=== PATIENT | male | born 1985 | race Caucasian/White ===

== ENCOUNTER 2019-11-11 13:44 | Inpatient (IN) | payer OTHER ==
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
[2019-11-11] MEDS ORDERED: MAGNESIUM HYDROX 2400MG/30ML ORAL SUSPENSION 30 ML CUP PO PRN (15:48)
[2019-11-11] MEDS ORDERED: MAGNESIUM CITRATE 300 ML BOTTLE PO PRN (15:48)
[2019-11-11] MEDS ORDERED: MENTHOL/PHENOL 1 EACH UD MM PRN (15:48)
[2019-11-11] MEDS ORDERED: IBUPROFEN 400 MG TABLET (FP) PO PRN (15:48)
[2019-11-11] MEDS ORDERED: ACETAMINOPHEN 325 MG TABLET (FP) PO PRN ×2 (15:48)
[2019-11-11] MEDS ORDERED: BISMUTH SUBSALICYLATE 524 MG/30 ML UD PO PRN (15:48)
[2019-11-11] MEDS ORDERED: NICOTINE POLACRILEX 2 MG GUM BUC PRN (15:48)
[2019-11-11] MEDS ORDERED: MAG HYDROX/AL HYDROX/SIMETH 30 ML UNIT-DOSE CUP PO PRN (15:48)
[2019-11-11] MEDS ORDERED: chlordiazePOXIDE HCL 25 MG CAPSULE PO PRN (15:49)
[2019-11-11 16:07] VITALS: BMI 21.1
[2019-11-11] MEDS ORDERED: ONDANSETRON *ODT* 4 MG TABLET SL ONE (16:30)
[2019-11-11] MEDS ORDERED: TUBERCULIN PPD 5 TU/0.1ML VIAL ID ONE ×2 (16:42→16:49)
[2019-11-11] MEDS: NICOTINE 7 MG/24 HOURS TOPICAL PATCH TD SCH (16:47)
[2019-11-11] MEDS: PRENATAL VITAMINS W/ FOLIC ACID TABLET (FP) PO SCH (16:47)
[2019-11-11] MEDS: chlordiazePOXIDE HCL 25 MG CAPSULE PO SCH ×2 (17:05→22:00)
[2019-11-11] MEDS: hydrOXYzine PAMOATE 25 MG CAPSULE (FP) PO SCH ×2 (17:05→21:51)
[2019-11-11] MEDS ORDERED: cloNIDine HCL 0.1 MG TABLET PO ONE (21:08)
--- NOTE | 2019-11-11 21:17 | PN ---
S Progress Note Note: Patient's blood pressure is B/P 179/111. Patient is asymptomatic Vital Signs Temperature 98.7 F 11/11/19 21:02 Pulse Rate 112 H 11/11/19 21:02 Respiratory Rate 18 11/11/19 21:02 Blood Pressure 179/111 H 11/11/19 21:02 O2 Sat by Pulse Oximetry (%) 95 11/11/19 20:55 Action: Clonidine HCL 0.1mg tablet oral ordered
[2019-11-11] MEDS: MELATONIN 5 MG TABLETS PO SCH (21:51)
[2019-11-11] MEDS: THIAMINE HCL 100 MG TABLET (FP) PO SCH (21:51)
[2019-11-12] MEDS: hydrOXYzine PAMOATE 25 MG CAPSULE (FP) PO SCH ×5 (06:08→22:08)
[2019-11-12] MEDS: chlordiazePOXIDE HCL 25 MG CAPSULE PO SCH ×4 (06:09→22:08)
[2019-11-12] MEDS ORDERED: cloNIDine HCL 0.1 MG TABLET PO ONE (07:02)
--- NOTE | 2019-11-12 07:05 | PN ---
S Progress Note Note: Patient's blood pressure is B/P 163/97. Patient is asymptomatic Vital Signs Temperature 100.0 F H 11/12/19 05:57 Pulse Rate 92 H 11/12/19 05:57 Respiratory Rate 18 11/12/19 05:57 Blood Pressure 163/97 11/12/19 05:57 O2 Sat by Pulse Oximetry (%) 97 11/12/19 05:57 Action: Clonidine HCL 0.1mg tablet oral ordered
--- NOTE | 2019-11-12 08:21 | PN ---
Teaching Attending Note Name of Resident: César Cortez ATTENDING PHYSICIAN STATEMENT I saw and evaluated the patient. I reviewed the resident's note and discussed the case with the resident. I agree with the resident's findings and plan as documented. SUBJECTIVE: OBJECTIVE: ASSESSMENT AND PLAN:
[2019-11-12] MEDS: PRENATAL VITAMINS W/ FOLIC ACID TABLET (FP) PO SCH (10:08)
[2019-11-12] MEDS: NICOTINE 7 MG/24 HOURS TOPICAL PATCH TD SCH (10:09)
--- NOTE | 2019-11-12 10:57 | PN ---
[facility] CIWA - CIWA Score Nausea/Vomitin-Mild Nausea/No Vomiting Muscle Tremors: 4-Moderate,w/Arms Extend Anxiety: 5 Agitation: 4-Moderately Restless Paroxysmal Sweats: 2 Orientation: 0-Oriented Tacttile Disturbances: 0-None Auditory Disturbances: 0-None Visual Disturbances: 0-None Headache: 0-None Present CIWA-Ar Total Score: 16 BHS COWS - Scale Resting Pulse: 1= [place] 81-100 Sweatin= Chills/Flushing Restless Observation: 3= Extraneous Movement Pupil Size: 0= Normal to Room Light Bone or Joint Aches: 2= Severe Diffuse Aches Runny Nose/ Eye Tearin= None GI Upset > 30mins: 2= Nausea/Diarrhea Tremor Observation of Outstretched Hands: 2= Slight Tremor Visible Yawning Observation: 0= None Anxiety or Irritability: 2=Irritable/Anxious Goose Flesh Skin: 0=Smooth Skin COWS Score: 13 BHS Progress Note (SOAP) Subjective: Pt c/o Tremors cold sweats diarrhea restlessness decreased appetite intermittent sleep Objective: 11/12/19 10:55 Vital Signs - 24 hr 11/11/19 11/11/19 11/11/19 16:04 20:55 21:02 Temperature 98.5 F 98.7 F Pulse Rate 136 H 112 H Respiratory 20 18 Rate Blood Pressure 163/90 179/111 H O2 Sat by Pulse 95 Oximetry (%) 11/12/19 05:57 Temperature 100.0 F H Pulse Rate 92 H Respiratory 18 Rate Blood Pressure 163/97 O2 Sat by Pulse 97 Oximetry (%) lab results pending Alert o x 3 nad but slightly restless and requesting mor librium Assessment: 11/12/19 10:56 moderate withdrawal sx Plan: cont detox increase po fluids maintain saftey Extra dose -Librium 50 mg po x 1 @ 1300 today.
[2019-11-12 11:52] LABS: HEMATOCRIT 42.4 % (35.4-49); HEMOGLOBIN 14.5 GM/dL (11.7-16.9); MCH 34.1 pg (25.7-33.7); MCHC 34.3 g/dl (32.0-35.9); MEAN CELL VOLUME 99.6 fl (80-96); MEAN PLT VOLUME 8.8 fl (7.5-11.1); PLATELET COUNT 207 K/MM3 (134-434); RBC 4.25 M/mm3 (4.00-5.60); RDW 12.8 % (11.9-15.9); WHITE BLOOD COUNT 7.7 K/mm3 (4.0-10.0)
[2019-11-12 12:01] LABS: ALBUMIN 3.4 g/dl (3.4-5.0); BILIRUBIN,TOTAL 0.9 mg/dL (0.2-1); BLOOD UREA NITROGEN 4.7 mg/dL (7-18); CALCIUM 8.9 mg/dL (8.5-10.1); CREATININE 0.6 mg/dL (0.55-1.3)
[2019-11-12] MEDS ORDERED: chlordiazePOXIDE HCL 25 MG CAPSULE PO ONE (13:00)
[2019-11-12] MEDS: THIAMINE HCL 100 MG TABLET (FP) PO SCH (22:08)
[2019-11-12] MEDS: cloNIDine HCL 0.1 MG TABLET PO SCH (22:08)
[2019-11-12] MEDS: MELATONIN 5 MG TABLETS PO SCH (22:08)
[2019-11-13] MEDS: hydrOXYzine PAMOATE 25 MG CAPSULE (FP) PO SCH ×5 (06:06→21:51)
[2019-11-13] MEDS: chlordiazePOXIDE HCL 25 MG CAPSULE PO SCH ×4 (06:06→22:19)
[2019-11-13] MEDS: cloNIDine HCL 0.1 MG TABLET PO SCH ×2 (10:06→21:51)
[2019-11-13] MEDS: PRENATAL VITAMINS W/ FOLIC ACID TABLET (FP) PO SCH (10:07)
[2019-11-13] MEDS: NICOTINE 7 MG/24 HOURS TOPICAL PATCH TD SCH (10:08)
--- NOTE | 2019-11-13 10:27 | PN ---
[facility] CIWA - CIWA Score Nausea/Vomitin-Mild Nausea/No Vomiting Muscle Tremors: 1-None Visible, but Raccoon Anxiety: 1-Mildly Anxious Agitation: 0-Normal Activity Paroxysmal Sweats: 4-Forehead w/Sweat Beads Orientation: 0-Oriented Tacttile Disturbances: 2-Mild Itch/Numbness/Burn (Has a rash on inner thighs, upper arms, back (this may be the cause of the itching-negative for HIV & syphilis).) Auditory Disturbances: 4-Moderate Hallucination (Hears conversations of people who are not present, believes he was talking to her sister.) Visual Disturbances: 4-Moderate Hallucinations (Sees people who are not present) Headache: 0-None Present CIWA-Ar Total Score: 17 S COWS - Scale Resting Pulse: 1= [place] 81-100 Sweatin= Beads of Sweat on Face Restless Observation: 0= Sits Still Pupil Size: 0= Normal to Room Light Bone or Joint Aches: 1= Mild Discomfort Runny Nose/ Eye Tearin= Nasal Congestion GI Upset > 30mins: 0= None Tremor Observation of Outstretched Hands: 1= Tremor Raccoon, Not Seen Yawning Observation: 0= None Anxiety or Irritability: 2=Irritable/Anxious Goose Flesh Skin: 0=Smooth Skin COWS Score: 9 BHS Progress Note (SOAP) Subjective: Patient reports rash on inner thighs, upper arms, shoulder, and back. States he has had it for about 2 months. Does not know when it started, denies changes in diet or medication, creams, lotions, or detergent. States that the hydrocortisone cream and benadryl cream are not working. Requesting benadryl PO for the itch. Potassium level is 3.0 Objective: General: anxious, irritated HEENTM: normocephalic, PERRLA Neck: supple Lungs: Respirations unlabored, no use of accessory muscles SKIN: reddened patches on thighs, upper arms, shoulders and back. scattered postures in reddened areas, Neuro: A+O x4, 11/13/19 10:29 11/13/19 10:31 Laboratory Last Values WBC 7.7 K/mm3 (4.0-10.0) 11/12/19 08:15 RBC 4.25 M/mm3 (4.00-5.60) 11/12/19 08:15 Hgb 14.5 GM/dL (11.7-16.9) 11/12/19 08:15 Hct 42.4 % (35.4-49) 11/12/19 08:15 MCV 99.6 fl (80-96) H 11/12/19 08:15 MCH 34.1 pg (25.7-33.7) H 11/12/19 08:15 MCHC 34.3 g/dl (32.0-35.9) 11/12/19 08:15 RDW 12.8 % (11.9-15.9) 11/12/19 08:15 Plt Count 207 K/MM3 (134-434) 11/12/19 08:15 MPV 8.8 fl (7.5-11.1) 11/12/19 08:15 Sodium 137 mmol/L (136-145) 11/12/19 08:15 Potassium 3.0 mmol/L (3.5-5.1) L 11/12/19 08:15 Chloride 100 mmol/L (98-107) 11/12/19 08:15 Carbon Dioxide 30 mmol/L (21-32) 11/12/19 08:15 Anion Gap 7 MMOL/L (8-16) L 11/12/19 08:15 BUN 4.7 mg/dL (7-18) L 11/12/19 08:15 Creatinine 0.6 mg/dL (0.55-1.3) 11/12/19 08:15 Est GFR (CKD-EPI)AfAm 150.97 11/12/19 08:15 Est GFR (CKD-EPI)NonAf 130.26 11/12/19 08:15 Random Glucose 90 mg/dL (74-106) 11/12/19 08:15 Calcium 8.9 mg/dL (8.5-10.1) 11/12/19 08:15 Total Bilirubin 0.9 mg/dL (0.2-1) 11/12/19 08:15 AST 39 U/L (15-37) H 11/12/19 08:15 ALT 46 U/L (13-61) 11/12/19 08:15 Alkaline Phosphatase 94 U/L (45-117) 11/12/19 08:15 Total Protein 7.0 g/dl (6.4-8.2) 11/12/19 08:15 Albumin 3.4 g/dl (3.4-5.0) 11/12/19 08:15 Syphilis Serology Non-reactive (NONREACTIVE) 11/12/19 08:15 HIV Ag/Ab Combo Qual Negative (NEGATIVE) 11/12/19 08:15 Vital Signs Period Temp Pulse Resp BP Sys/Gustafson Pulse Ox Last 24 Hr 97.5 F-98.7 F 94-115 16-20 132-147/71-88 96-98 Assessment: hypokalemic Withdrawal from alcohol and heroin Rash 11/13/19 10:32 Plan: Will supplement potassium Continue detox for ETOH and opioids Will prescribe permethrin and triamcinolone for itch WIll order HEP C screen (rash).
[2019-11-13] MEDS ORDERED: PERMETHRIN 5% TOPICAL CREAM 60 GM TUBE TP ONE (10:50)
[2019-11-13] MEDS: METHOCARBAMOL 500 MG TABLET PO PRN (17:59)
[2019-11-13] MEDS: POTASSIUM CHLORIDE TABS 20 MEQ TABLET.ER (FP) PO SCH (21:51)
[2019-11-13] MEDS: THIAMINE HCL 100 MG TABLET (FP) PO SCH (21:51)
[2019-11-13] MEDS: MELATONIN 5 MG TABLETS PO SCH (22:18)
[2019-11-14] MEDS ORDERED: chlordiazePOXIDE HCL 10 MG CAPSULE PO PRN
[2019-11-14] MEDS: hydrOXYzine PAMOATE 25 MG CAPSULE (FP) PO SCH ×5 (06:07→22:08)
[2019-11-14] MEDS: chlordiazePOXIDE HCL 10 MG CAPSULE PO SCH ×4 (06:07→22:08)
[2019-11-14] MEDS: cloNIDine HCL 0.1 MG TABLET PO SCH ×2 (10:09→22:08)
[2019-11-14] MEDS: PRENATAL VITAMINS W/ FOLIC ACID TABLET (FP) PO SCH (10:09)
[2019-11-14] MEDS: POTASSIUM CHLORIDE TABS 20 MEQ TABLET.ER (FP) PO SCH ×2 (10:09→22:09)
[2019-11-14] MEDS: TRIAMCINOLONE ACET 0.5% OINT 15 GM TUBE TP SCH (10:10)
[2019-11-14] MEDS: NICOTINE 7 MG/24 HOURS TOPICAL PATCH TD SCH (10:11)
--- NOTE | 2019-11-14 12:06 | PN ---
[facility] CIWA - CIWA Score Nausea/Vomitin-No Nausea/No Vomiting Muscle Tremors: 4-Moderate,w/Arms Extend Anxiety: 1-Mildly Anxious Agitation: 0-Normal Activity Paroxysmal Sweats: 4-Forehead w/Sweat Beads Orientation: 0-Oriented Tacttile Disturbances: 2-Mild Itch/Numbness/Burn Auditory Disturbances: 0-None Visual Disturbances: 0-None Headache: 1-Very Mild CIWA-Ar Total Score: 12 BHS COWS - Scale Resting Pulse: 0= [place] 80 or Below Sweatin= Beads of Sweat on Face Restless Observation: 0= Sits Still Pupil Size: 0= Normal to Room Light Bone or Joint Aches: 4=Acute Joint/Muscle Pain (pain in left knee and calf, negative lora's sign) Runny Nose/ Eye Tearin= Nasal Congestion GI Upset > 30mins: 0= None Tremor Observation of Outstretched Hands: 2= Slight Tremor Visible Yawning Observation: 0= None Anxiety or Irritability: 1=Feels Anxious/Irritable Goose Flesh Skin: 0=Smooth Skin COWS Score: 11 S Progress Note (SOAP) Subjective: Patient's feeling better compared with yesterday. Reports that his rash is less itchy. Now c/o left knee pain and swelling. Denies injury while in detox or prior to admission PMHx: PMH of seizures (from alcohol) who presents to [facility] for alcohol detox; patient endorses he consumes 5 pints of Vodka daily as well as five 24 oz Four Pedro. Patient's last seizure was 2 years ago due to him not being able to afford the alcohol. PMH- Seizure (last 2 years ago.) Social Hx: Smokes 1 PPDx24 years. Alcohol as described above. Heroine-Uses ~ 2 bags per week- last use was 5 days prior to admission SurgHx- Plastic surgery on nose FH- Father Alcoholism. Mother Alcoholism Objective: 11/14/19 12:09 Vital Signs Period Temp Pulse Resp BP Sys/Gustafson Pulse Ox Last 24 Hr 97.2 F-100.2 F 74-113 16-18 106-123/62-77 96-97 Laboratory Last Values WBC 7.7 K/mm3 (4.0-10.0) 11/12/19 08:15 RBC 4.25 M/mm3 (4.00-5.60) 11/12/19 08:15 Hgb 14.5 GM/dL (11.7-16.9) 11/12/19 08:15 Hct 42.4 % (35.4-49) 11/12/19 08:15 MCV 99.6 fl (80-96) H 11/12/19 08:15 MCH 34.1 pg (25.7-33.7) H 11/12/19 08:15 MCHC 34.3 g/dl (32.0-35.9) 11/12/19 08:15 RDW 12.8 % (11.9-15.9) 11/12/19 08:15 Plt Count 207 K/MM3 (134-434) 11/12/19 08:15 MPV 8.8 fl (7.5-11.1) 11/12/19 08:15 Sodium 137 mmol/L (136-145) 11/12/19 08:15 Potassium 3.0 mmol/L (3.5-5.1) L 11/12/19 08:15 Chloride 100 mmol/L (98-107) 11/12/19 08:15 Carbon Dioxide 30 mmol/L (21-32) 11/12/19 08:15 Anion Gap 7 MMOL/L (8-16) L 11/12/19 08:15 BUN 4.7 mg/dL (7-18) L 11/12/19 08:15 Creatinine 0.6 mg/dL (0.55-1.3) 11/12/19 08:15 Est GFR (CKD-EPI)AfAm 150.97 11/12/19 08:15 Est GFR (CKD-EPI)NonAf 130.26 11/12/19 08:15 Random Glucose 90 mg/dL (74-106) 11/12/19 08:15 Calcium 8.9 mg/dL (8.5-10.1) 11/12/19 08:15 Total Bilirubin 0.9 mg/dL (0.2-1) 11/12/19 08:15 AST 39 U/L (15-37) H 11/12/19 08:15 ALT 46 U/L (13-61) 11/12/19 08:15 Alkaline Phosphatase 94 U/L (45-117) 07/14/20 08:15 Total Protein 7.0 g/dl (6.4-8.2) 11/12/19 08:15 Albumin 3.4 g/dl (3.4-5.0) 11/12/19 08:15 Syphilis Serology Non-reactive (NONREACTIVE) 11/12/19 08:15 COVID-19 (JOSE LUIS) Not detected (Not Detected) 11/11/19 16:15 HIV Ag/Ab Combo Qual Negative (NEGATIVE) 11/12/19 08:15 11/14/19 12:13 General: anxious, irritated HEENTM: normocephalic, PERRLA Neck: supple Lungs: Respirations unlabored, no use of accessory muscles SKIN: reddened patches on thighs, upper arms, shoulders and back. scattered postures in reddened areas, Extremities: Full ROM bilateral, Left knee slightly swollen compared to right. popliteal and ankle pulses equal bilaterally, temperature of legs equal, color o f extremities equal and consistent with upper extremities and trunk. Neuro: A+O x4, Assessment: Withdrawal from alcohol left knee pain low BP 11/14/19 12:15 11/14/19 12:17 Plan: Continue withdrawal protocol Motrin prn for knee pain, elevation of knee clonidine held for low BP
[2019-11-14] MEDS: METHOCARBAMOL 500 MG TABLET PO PRN ×2 (17:15→23:09)
[2019-11-14] MEDS: THIAMINE HCL 100 MG TABLET (FP) PO SCH (22:08)
[2019-11-14] MEDS: MELATONIN 5 MG TABLETS PO SCH (22:09)
[2019-11-15] MEDS ORDERED: chlordiazePOXIDE HCL 10 MG CAPSULE PO SCH (05:00)
[2019-11-15] MEDS: hydrOXYzine PAMOATE 25 MG CAPSULE (FP) PO SCH ×2 (05:37→09:15)
[2019-11-15 06:22] VITALS: BP 121/68; PULSE 75; TEMP 97.5
--- NOTE | 2019-11-15 09:10 | DS ---
[facility] Rehab Discharge Summary - [facility] Rehab Discharge Summary Admission Date: 11/11/19 Discharge Date: 11/15/19 - History Present History: Alcohol dependence Additional Comments: Saw patient in day room watching TV this morning who was ready and waiting to be picked up by [facility]. Pt states "i'm fine, i'm ready for rehab". Pt observed to be in very good spirit eager to go to the next level of care. Pt was seen by counselor Ms Carlos Zarate and all discharge referral plan discussed with patient. - Discharge Physical Exam Vital Signs: Vital Signs Temperature 97.5 F L 11/15/19 05:35 Pulse Rate 75 11/15/19 05:35 Respiratory Rate 18 11/15/19 05:35 Blood Pressure 121/68 11/15/19 05:35 O2 Sat by Pulse Oximetry (%) 98 11/15/19 05:35 Alert o x 3 - Treatment Discharge Condition: Outpatient referral accepted - Medication Discharge Medications: Ambulatory Orders NK [No Known Home Medication] 11/11/19 - Discharge Instructions Diet, activity, other medical instructions: Diet: Activity: Other medical instructions:
[2019-11-15] MEDS: POTASSIUM CHLORIDE TABS 20 MEQ TABLET.ER (FP) PO SCH (09:13)
[2019-11-15] MEDS: PRENATAL VITAMINS W/ FOLIC ACID TABLET (FP) PO SCH (09:13)
[2019-11-15] MEDS: cloNIDine HCL 0.1 MG TABLET PO SCH (09:14)
[2019-11-15] MEDS: NICOTINE 7 MG/24 HOURS TOPICAL PATCH TD SCH (09:15)
[2019-11-15] MEDS: TRIAMCINOLONE ACET 0.5% OINT 15 GM TUBE TP SCH (09:15)
--- NOTE | 2019-11-15 09:18 | DS ---
[facility] Detox Discharge Summary Admission Date: 11/11/19 Discharge Date: 11/15/19 - History Present History: Alcohol Dependence, Cannabis Dependence, Opioid Dependence (by history but tox negative) Additional Comments: Saw pt this morning in day room all dressed and ready to be picked up by inpatient rehab in [address]. Pt states "I'm fine. I'm ready to go ". Pt was seen by counselor Ms Carlos Zarate and all information on CD aftercare referral discussed with patient. Pt reports no primary care provider and has been instructed to follow up with primary care at the next referral site. Pertinent Past History: See PMHx in H/P - Physical Exam Results Vital Signs: Vital Signs Temperature 97.5 F L 11/15/19 05:35 Pulse Rate 75 11/15/19 05:35 Respiratory Rate 18 11/15/19 05:35 Blood Pressure 121/68 11/15/19 05:35 O2 Sat by Pulse Oximetry (%) 98 11/15/19 05:35 Alert o x 3 nad oob ambulating with steady gait cardiac;s1 s2, rrr lungs;ctab extremities:no edema,skin intact;active ROM all extremities. Pertinent Admission Physical Exam Findings: Laboratory Tests 11/11/19 11/12/19 11/12/19 16:15 08:15 08:15 WBC RBC Hgb Hct MCV MCH MCHC RDW Plt Count MPV Sodium Potassium Chloride Carbon Dioxide Anion Gap BUN Creatinine Est GFR (CKD-EPI)AfAm Est GFR (CKD-EPI)NonAf Random Glucose Calcium Total Bilirubin AST ALT Alkaline Phosphatase Total Protein Albumin Syphilis Serology Non-reactive COVID-19 ([facility]) Not detected HIV Ag/Ab Combo Qual Negative 11/12/19 11/12/19 08:15 08:15 WBC 7.7 RBC 4.25 Hgb 14.5 Hct 42.4 MCV 99.6 H MCH 34.1 H MCHC 34.3 RDW 12.8 Plt Count 207 MPV 8.8 Sodium 137 Potassium 3.0 L Chloride 100 Carbon Dioxide 30 Anion Gap 7 L BUN 4.7 L Creatinine 0.6 Est GFR (CKD-EPI)AfAm 150.97 Est GFR (CKD-EPI)NonAf 130.26 Random Glucose 90 Calcium 8.9 Total Bilirubin 0.9 AST 39 H ALT 46 Alkaline Phosphatase 94 Total Protein 7.0 Albumin 3.4 Syphilis Serology COVID-19 ([facility]) HIV Ag/Ab Combo Qual Hypokalemia-treated with Kdur while in detox. Pt to follow up with provider/PCP with copy of lab result for subsequent monitoring/management. Discussed with pt to eat K+ rich foods- e.g banana - Treatment Hospital Course: Detox Protocol Followed, Detoxed Safely, Responded well, Discharged Condition Good, Rehab Referral Accepted Patient has Accepted a Rehab Referral to: [address] - Medication Discharge Medications: Ambulatory Orders NK [No Known Home Medication] 11/11/19 - Diagnosis (1) Alcohol dependence with withdrawal, uncomplicated Current Visit: Yes Status: Acute (2) Nicotine dependence Current Visit: Yes Status: Acute Qualifiers: Nicotine product type: cigarettes Substance use status: in withdrawal Qualified Code(s): F17.213 - Nicotine dependence, cigarettes, with withdrawal (3) Dermatitis Current Visit: Yes Status: Acute - AMA Did Patient Leave Against Medical Advice: No
[2019-11-16] MEDS ORDERED: chlordiazePOXIDE HCL 10 MG CAPSULE PO ONE (05:00)
== END 2019-11-15 09:35 | disposition other institution (70) | DRG 773 ==
LOC: YASAS 13:44 → Y5N DETOX 16:15
PROVIDERS: ADMIT Allergy & Immunology; ATTEND Allergy & Immunology
PROC: HZ2ZZZZ Detoxification Services for Substance Abuse Treatment (ICD-10-PCS; principal; 2019-11-11)
DX: F10.230 Alcohol dependence with withdrawal, uncomplicated (principal); F11.20 Opioid dependence, uncomplicated; F12.20 Cannabis dependence, uncomplicated; F17.210 Nicotine dependence, cigarettes, uncomplicated; E87.6 Hypokalemia; L30.9 Dermatitis, unspecified; M25.562 Pain in left knee; I95.9 Hypotension, unspecified; R21 Rash and other nonspecific skin eruption; Z86.69 Personal history of other diseases of the nervous system and sense organs; Z59.0 Homelessness
CPT/HCPCS: 36415; 80053; 85027; 86780; 87389; J0735; U0003

== ENCOUNTER 2020-06-29 12:24 | Inpatient (IN) | payer OTHER ==
[2020-06-29 13:53] VITALS: BMI 28.1
[2020-06-29] MEDS ORDERED: MAGNESIUM CITRATE 300 ML BOTTLE PO PRN (14:13)
[2020-06-29] MEDS ORDERED: MAG HYDROX/AL HYDROX/SIMETH 30 ML UNIT-DOSE CUP PO PRN (14:13)
[2020-06-29] MEDS ORDERED: BISMUTH SUBSALICYLATE 262 MG/15 ML BTL PO PRN (14:13)
[2020-06-29] MEDS ORDERED: ACETAMINOPHEN 325 MG TABLET (FP) PO PRN ×2 (14:13)
[2020-06-29] MEDS ORDERED: LORazepam 1 MG TABLET PO PRN (14:13)
[2020-06-29] MEDS ORDERED: IBUPROFEN 400 MG TABLET (FP) PO PRN (14:13)
[2020-06-29] MEDS ORDERED: MAGNESIUM HYDROX 2400MG/30ML ORAL SUSPENSION 30 ML CUP PO PRN (14:13)
[2020-06-29] MEDS ORDERED: ONDANSETRON *ODT* 4 MG TABLET SL PRN (14:13)
[2020-06-29] MEDS ORDERED: MENTHOL/PHENOL 1 EACH UD MM PRN (14:13)
[2020-06-29] MEDS ORDERED: NICOTINE POLACRILEX 2 MG GUM BUC PRN (14:13)
[2020-06-29] MEDS: NICOTINE 21 MG/24 HOURS TOPICAL PATCH TD SCH (15:05)
[2020-06-29] MEDS: PRENATAL VITAMINS W/ FOLIC ACID TABLET (FP) PO SCH (15:05)
[2020-06-29] MEDS: hydrOXYzine PAMOATE 25 MG CAPSULE (FP) PO SCH ×2 (18:19→22:43)
[2020-06-29] MEDS: LORazepam 2 MG TABLET PO SCH ×2 (18:19→22:43)
[2020-06-29] MEDS: MELATONIN 5 MG TABLETS PO SCH (22:43)
[2020-06-29] MEDS: THIAMINE HCL 100 MG TABLET (FP) PO SCH (22:43)
[2020-06-30] MEDS: hydrOXYzine PAMOATE 25 MG CAPSULE (FP) PO SCH ×5 (06:13→21:51)
[2020-06-30] MEDS: LORazepam 2 MG TABLET PO SCH ×4 (06:13→21:59)
[2020-06-30] MEDS: PRENATAL VITAMINS W/ FOLIC ACID TABLET (FP) PO SCH (09:15)
[2020-06-30] MEDS ORDERED: amLODIPine BESYLATE 5 MG TABLET (FP) PO SCH (10:00)
[2020-06-30] MEDS: NICOTINE 21 MG/24 HOURS TOPICAL PATCH TD SCH (10:27)
[2020-06-30] MEDS: METHOCARBAMOL 500 MG TABLET PO PRN (21:51)
[2020-06-30] MEDS: MELATONIN 5 MG TABLETS PO SCH (21:53)
[2020-06-30] MEDS: THIAMINE HCL 100 MG TABLET (FP) PO SCH (21:56)
[2020-07-01] MEDS ORDERED: LORazepam 1 MG TABLET PO SCH (05:00)
[2020-07-01] MEDS: hydrOXYzine PAMOATE 25 MG CAPSULE (FP) PO SCH (05:45)
[2020-07-01] MEDS: METHOCARBAMOL 500 MG TABLET PO PRN (05:50)
[2020-07-01 06:36] VITALS: BP 153/82; PULSE 74; TEMP 97.3
[2020-07-02] MEDS ORDERED: LORazepam 0.5 MG TABLET PO PRN
[2020-07-02] MEDS ORDERED: LORazepam 0.5 MG TABLET PO SCH (05:00)
[2020-07-03] MEDS ORDERED: LORazepam 0.5 MG TABLET PO ONE (05:00)
== END 2020-07-01 09:35 | disposition left against medical advice (07) | DRG 770 ==
LOC: YASAS 12:24 → Y6N 14:00
PROVIDERS: ADMIT Allergy & Immunology; ATTEND Allergy & Immunology
PROC: HZ2ZZZZ Detoxification Services for Substance Abuse Treatment (ICD-10-PCS; principal; 2020-06-29)
DX: F10.230 Alcohol dependence with withdrawal, uncomplicated (principal); F12.10 Cannabis abuse, uncomplicated; F17.213 Nicotine dependence, cigarettes, with withdrawal; F19.24 Other psychoactive substance dependence with psychoactive substance-induced mood disorder; F41.9 Anxiety disorder, unspecified; F32.9 Major depressive disorder, single episode, unspecified; I10 Essential (primary) hypertension; Z86.69 Personal history of other diseases of the nervous system and sense organs; Z59.0 Homelessness
CPT/HCPCS: C9803; Q0162; U0003